=== PATIENT | female | born 2000 | race Caucasian/White ===

== ENCOUNTER 2019-05-19 16:02 | Emergency (ER) | payer BC ==
[2019-05-19 16:22] VITALS: BP 106/72
--- NOTE | 2019-05-19 16:39 | UC ---
Throat Pain/Nasal Alessio HPI - HPI Summary HPI Summary: 3 week history of meandering respiratory symptoms, with nasal discharge, off and on sore throat, now progressive drainage, cough, ear pain and decreased hearing. Hx of pneumonia 3 years ago, no complications. Using full range of symptomatic measures, and getting adequate rest. - History of Current Complaint Chief Complaint: UCRespiratory Stated Complaint: COLD SYMPTOMS Time Seen by Provider: 05/19/19 16:31 Hx Obtained From: Patient Onset/Duration: Gradual Onset, Lasting Weeks - 3 Severity: Moderate Pain Intensity: 0 Cough: Sputum Appears - green Associated Signs & Symptoms: Positive: Dysphagia, Sinus Discomfort - Epiglottits Risk Factors Epiglottis Risk Factors: Negative - Allergies/Home Medications Allergies/Adverse Reactions: Allergies Allergy/AdvReac Type Severity Reaction Status Date / Time No Known Allergies Allergy Verified 05/19/19 16:23 Home Medications: Home Medications Ethinyl Estradiol/Drospirenone [Lily 28 Tablet] 1 each PO DAILY 05/19/19 [ History Confirmed 05/19/19] Fluticasone NASAL SPRAY 50MCG* [Flonase NASAL SPRAY 50MCG*] 2 spray BOTH NARES DAILY 05/19/19 [History Confirmed 05/19/19] Guaifenesin/Dextromethorphan [Mucinex Dm ER 1,200-60 mg Tab] 1 each PO Q6H 05/19 [History Confirmed 05/19/19] Pseudoephedrine TAB* [Sudafed TAB*] 30 mg PO Q6H PRN 05/19/19 [History Confirmed 05/19/19] PMH/Surg Hx/FS Hx/Imm Hx Previously Healthy: Yes - Surgical History Surgical History: Yes Surgery Procedure, Year, and Place: tonsillectomy - Family History Known Family History: Positive: Respiratory Disease - father has asthma - Social History Occupation: Student Lives: Dormitory/Roommates Alcohol Use: Weekly Substance Use Type: Marijuana Smoking Status (MU): Never Smoked Tobacco Review of Systems All Other Systems Reviewed And Are Negative: Yes Constitutional: Positive: Fatigue Respiratory: Positive: Cough Cardiovascular: Positive: Negative Gastrointestinal: Positive: Negative Genitourinary: Positive: Negative Neurological: Positive: Headache Is Patient Immunocompromised?: Yes Physical Exam Triage Information Reviewed: Yes Appearance: Ill-Appearing - looks fatigued and unwell Vital Signs: Initial Vital Signs Temp 98.7 F 05/19/19 16:17 Pulse 78 05/19/19 16:17 Resp 16 05/19/19 16:17 BP 106/72 05/19/19 16:17 Pulse Ox 100 05/19/19 16:17 ENT: Positive: Pharyngeal erythema, TM bulging - right, TM red - right, Sinus tenderness. Negative: Tonsillar swelling Neck: Positive: Supple, Nontender, No Lymphadenopathy Respiratory: Positive: Lungs clear, Normal breath sounds Cardiovascular: Positive: RRR, No Murmur Musculoskeletal Exam: Normal Neurological Exam: Normal Psychological Exam: Normal Skin Exam: Normal Throat Pain/Nasal Course/Dx - Course Course Of Treatment: amoxicillin for treatment of sinusitis, right otitis media. - Differential Dx/Diagnosis Differential Diagnosis/HQI/PQRI: Laryngitis, Otitis Media, Sinusitis, URI Provider Diagnosis: Right otitis media, Sinusitis Discharge ED - Sign-Out/Discharge Documenting (check all that apply): Patient Departure All imaging exams completed and their final reports reviewed: No Studies - Discharge Plan Condition: Stable Disposition: HOME Prescriptions: Amoxicillin PO (*) [Amoxicillin 875 MG (*)] 875 mg PO BID #20 tab Patient Education Materials: Sinusitis (ED), Ear Infection (ED) Referrals: No Primary Care Phys,NOPCP [Primary Care Provider] - Additional Instructions: Add amoxicillin for treatment of right ear infection and sinus infection, anticipating that symptoms will begin to improve in 3 to 4 days. Continue symptom control with cough suppressant and nasal sprays. Remember to get your flu vaccine once available. - Billing Disposition and Condition Condition: STABLE Disposition: Home
== END 2019-05-19 17:02 | disposition home or self-care (01) ==
LOC: UCEAST 16:02
DX: J32.9 Chronic sinusitis, unspecified (principal); H66.91 Otitis media, unspecified, right ear; J02.9 Acute pharyngitis, unspecified
CPT/HCPCS: 99202; G0463